=== PATIENT | female | born 1985 | race Two or more races ===

== ENCOUNTER 2021-06-17 12:44 | Emergency (ER) | payer MEDICAID ==
[~2021-06-17] VITALS: Ht 152.4 cm; Wt 63.5 kg
[2021-06-17 14:46] VITALS: BP 137/83
[2021-06-17] MEDS ORDERED: PRED20TA2 PO (15:23)
[2021-06-17] MEDS ORDERED: AMOX500C2 PO (15:23)
== END 2021-06-17 15:42 | disposition home or self-care (01) ==
LOC: ER 12:44
DX: J01.90 Acute sinusitis, unspecified (principal); Z20.822 Contact with and (suspected) exposure to COVID-19
CPT/HCPCS: 36415; 87426

== ENCOUNTER 2022-09-01 15:12 | Emergency (ER) | payer MEDICAID ==
[~2022-09-01] VITALS: Ht 149.9 cm; Wt 61.4 kg
[~2022-09-01 15:12] MED LIST: AMOX500C2 PO; PRED20TA2 PO
[2022-09-01] MEDS ORDERED: IBUP600T28 PO (17:33)
[2022-09-01 17:50] VITALS: BP 136/74
== END 2022-09-01 18:00 | disposition home or self-care (01) ==
LOC: ER 15:12
DX: S93.401A Sprain of unspecified ligament of right ankle, initial encounter (principal); F17.210 Nicotine dependence, cigarettes, uncomplicated; Z87.442 Personal history of urinary calculi; Z88.1 Allergy status to other antibiotic agents; W22.8XXA Striking against or struck by other objects, initial encounter; Y93.01 Activity, walking, marching and hiking; Y92.89 Other specified places as the place of occurrence of the external cause; Y99.8 Other external cause status
CPT/HCPCS: 73610; 73630